=== PATIENT | male | born 1945 | race Caucasian/White ===

== ENCOUNTER 2022-01-11 00:15 | Inpatient (IN) | payer MEDICARE, SELFPAY ==
[2022-01-11] VITALS (23 sets, daily range): BP systolic 105–136; BP diastolic 55–98; PULSE 70–90; RESP 14–20; TEMP 36.5–36.9; O2SAT 90–99; BMI 29.5
--- NOTE | 2022-01-11 | IR_ITS ---
APPROVED REPORT Patient Location: Inpatient Medical Scientist: JORGE Rowell RT (R) PROCEDURES Left heart catheterization Left ventriculogram Selective coronary angiogram INDICATION Acute non-ST elevation myocardial infarction, Coronary artery disease Informed consent was obtained prior to the procedure. COMPLICATIONS None Estimated Blood Loss: Less than 10 ML TECHNIQUE One percent lidocaine used to anesthetize the right anterior aspect of the wrist. The right radial artery was accessed via the Seldinger technique. A 6 [place] sheath was placed in the right radial artery. 2.5 mg of verapamil, 800 mcg of nitroglycerin, 1mg Lidocaine and 5000 U Heparin were given through the arterial sheath. The papa catheter and 6 [place] JL 3 guide catheter were also used to perform left heart catheterization, left ventriculogram and selective coronary angiogram. At the end of the procedure the sheath was removed good hemostasis was achieved using Traclet band, patient was transferred to the postop holding area in stable condition. ANGIOGRAPHIC RESULTS The left main artery Is a distal calcified concentric 80% stenosis The left anterior descending artery Has proximal 20 and 30% stenoses with mid vessel 50% stenosis and a distal concentric 90% stenosis followed by an additional 90% stenosis of the LAD wraps the apex The circumflex artery Nondominant has an ostial 90% stenosis with 50 to 60% concentric stenosis in the first obtuse marginal artery and tandem 80 to 90% stenoses in the second obtuse marginal artery The right coronary artery Is a dominant vessel has proximal 30% stenosis mid vessel 30 to 40% stenosis. A large posterior lateral branch has an ostial proximal 60 to 70% stenosis mid vessel 40% tandem stenoses. A posterior descending artery has an ostial 80% stenosis The SANTIZO ventriculogram reveals Normal 60 to 65% The left ventricular end-diastolic pressure 15 mmHg IMPRESSION Severe three-vessel coronary disease as described above Normal ejection fraction Mildly elevated LVEDP PLAN 1. Patient will be transferred to [facility] for surgical revascularization 2. LDL goal less than 55 to be achieved with high intensity statin 3. Start daily aspirin Electronically signed by : Curtis Quiñones MD 01/11/2022 13:31:14
--- NOTE | 2022-01-11 00:24 | PC.NURSE ---
patient arrived to floor @ 00:06
[2022-01-11 05:47] LABS: Coronavirus 19, PCR Not Detected (NotDetected); Influenza A, PCR Not Detected (NotDetected); Influenza B, PCR Not Detected (NotDetected)
[2022-01-11 06:04] LABS: Basophils # 0.2 K/mm3 (0-0.2); Basophils % 1.1 % (0.1-2.0); Eosinophils # 0.3 K/mm3 (0.0-0.4); Eosinophils % 1.6 % (0.1-12.0); Hemoglobin 13.5 g/dL (14.1-18.0); Lymphocytes # 13.2 K/mm3 (0.7-4.5); Lymphocytes % 82.9 % (10-50); Mean Corpuscular HGB Conc 33.8 g/dL (31.8-35.4); Mean Corpuscular Volume 100.4 fl (80-94); Mean Platelet Volume 8.4 fl (7.4-10.4); Monocytes # 0.1 K/mm3 (0.1-1.0); Monocytes % 0.5 % (1.7-9.3); Neutrophils # 2.2 K/mm3 (1.8-7.8); Platelet Count 183 K/mm3 (142-424); Red Blood Count 3.98 M/mm3 (4.60-6.20); Red Cell Distribution Width 14.7 % (11.5-17.5); White Blood Count 15.9 K/mm3 (4.8-10.8)
[2022-01-11 06:13] LABS: MANUAL DIFFERENTIAL MANUAL DIFFERENTIAL (MANUAL DIFF)
[2022-01-11 06:33] LABS: Chloride 103 mmol/L (98-107); Potassium 3.4 mmoL/L (3.5-5.1); Sodium 139 mmol/L (136-145)
[2022-01-11 06:35] LABS: Blood Urea Nitrogen 13 mg/dl (9-20); Creatinine Clearance Estimated 80 mL/min (50-200); Estimated Glomerular Filt Rate 110 ml/min (>60); GFR (African American) 133 ML/MIN (>60)
[2022-01-11 06:36] LABS: Anion Gap 11.4 mEq/L (5-15); Calcium 8.5 mg/dl (8.4-10.2); Carbon Dioxide 28 mmol/L (22.0-30.0); Cholesterol 115 mg/dl (140-200); Glucose 149 mg/dl (74-100); Triglycerides 147 mg/dl (30-150); VLDL Cholesterol 29 mg/dL (0-40)
[2022-01-11 06:37] LABS: Chol/HDL Ratio 3.7 (1-3.5); HDL Cholesterol 31 mg/dl (40-60); Magnesium 1.4 mg/dl (1.6-2.3)
[2022-01-11 06:47] LABS: Direct LDL Cholesterol 57.96 mg/dL (100-129)
--- NOTE | 2022-01-11 07:00 | CA_ITS ---
APPROVED REPORT EXAM: Comprehensive 2D, Doppler, and color-flow Echocardiogram [employer]en [employer]: Sugey Jimenez CRT Ht: 5 ft 9 in Wt: 199lbs BSA: 2.06 BP: 145/86 mmHg Indications: Chest Pain, Diabetes, Hypertension/HDD 2D Dimensions LVOT 1.95 cm (M/F) 1.5-2.5 LA Volume 50.70 mL LA Volume Index 24.60 mL/m2 (M/F) 16-34 M-Mode Dimensions RVDd 3.22 cm (0.9-2.6) LA Diam 4.39 cm (1.9-4.0) LVDd 4.60 cm (3.5-5.7) Ao Diam 3.57 cm (2.0-3.7) LVDs 3.36 cm (3.5-5.7) IVSd 1.75 cm (0.6-1.1) PWd 0.64 cm (0.6-1.1) EF (Teich) 52.60% FS 27.00% EDV (Teich) 97.30 mL TAPSE 1.62 (<1.7) ESV (Teich) 46.10 mL LV Diastology E Decel Time 157.00 (160-240 msec) E/A Ratio 1.63 MED E' 5.70 (< 7 cm/sec) MED A' 5.40 cm/s E'/MED E' Ratio 17.56 (>14) LAT E' 8.80 (<10 cm/sec) LAT A' 6.00 cm/s E/LAT E' Ratio 11.38 (>14) Aortic Valve AO Peak GR. 7.10 mmHg Mitral Valve MV E Max Manuel. 100.00 (40-130 cm/s) MV A Velocity 61.00 (40-130 cm/s) E/A Ratio 1.63 MV Decel. Time 157.00 (160-240 ms) MV PHT 46.00 ms Pulmonary Valve PV Peak Velocity 163.00 (50-150 cm/s) Tricuspid Valve TR P. Velocity 283.00 cm/s RAP Estimate 10.00 mmHg RVSP 42.10 mmHg Left Ventricle Left atrium is mildly enlarged, left ventricle is normal size, mild concentric left ventricular hypertrophy, estimated ejection fraction 50%, inferior basal wall appears to be moderately hypokinetic. Diastolic parameters are inconclusive. Right Ventricle Right atrium and right ventricular mildly enlarged with normal contractility. Aortic Valve Aortic valve is minimally thickened and fibrosed, there is no aortic stenosis or aortic insufficiency. Mitral Valve Mitral valve leaflets are minimally thickened, there is mild to moderate mitral regurgitation. Tricuspid Valve Tricuspid valve is grossly normal, there is mild tricuspid regurgitation, calculated right ventricular systolic pressure is 42 mmHg. Pulmonic Valve Pulmonic valve is poorly visualized. Great Vessels Aortic root is normal size. Inferior vena cava is poorly visualized. Pericardium No significant pericardial effusion noted. Conclusion 1. Mildly enlarged left atrium, normal left ventricular size, visually estimated ejection fraction 50% with segmental wall motion abnormality described above, diastolic parameters are inconclusive. 2. Mild to moderate mitral and mild tricuspid regurgitation, calculated right ventricular systolic pressure is 42 mmHg. 3. No significant pericardial effusion noted. 4. Inferior vena cava is poorly visualized. Electronically signed by : Laz Angulo MD 01/11/2022 19:43:49
[2022-01-11 07:20] LABS: Eosinophils % 1 % (0-3); Lymphocytes % 80 % (10-50); Macrocytosis 1+; Neutrophils % 16 % (42-76); Total Cells Counted 100
[2022-01-11 07:21] LABS: Platelet Estimate Normal
--- NOTE | 2022-01-11 07:25 | P.CONPHA_ITS ---
[facility] Pharmacy VTE Monitoring - Patient Demographics Admission date: 01/11/22 Report Date: 01/11/22 Time: 07:25 Allergies/Adverse Reactions: Patient Allergies lisinopril Adverse Reaction (Mild, Verified 01/11/22 00:45) Cough Height: 1.75 m Weight: 90.492 kg - VTE Risk Labs: VTE Related Lab Results Hgb 13.5 g/dL (14.1-18.0) L 01/11/22 05:26 Hct 40.0 % (42.0-52.0) L 01/11/22 05:26 Plt Count 183 K/mm3 (142-424) 01/11/22 05:26 BUN 13 mg/dl (9-20) 01/11/22 05:26 Creatinine 0.70 mg/dl (0.66-1.25) 01/11/22 05:26 Estimated Creat Clear 80 mL/min (50-200) 01/11/22 05:26 Was VTE Risk Assessment Performed: Yes VTE Score: 2 VTE Risk Level: Very Low Risk - Prophylaxis VTE Prophylaxis Ordered?: Yes Types of VTE Prophylaxis: TEDS Knee High Location of Applied Device: Bilateral Lower Extremeties
--- NOTE | 2022-01-11 07:30 | HMH.PHAINT ---
MEDICATION RECONCILIATION COMPLETED ON PATIENT USING EXTERNAL FILL HISTORY FROM PHARMACY. -[place], [place]
--- NOTE | 2022-01-11 07:41 | HMH.CNCARD ---
History of Present Illness Consult date: 01/11/22 Requesting physician: Luis Hill Consult reason: chest pain Chief complaint: SOA, elevated troponin Additional Medical History:: 1. Hypertension 2. Hyperlipidemia 3. History of diabetes treated for many years with recent hemoglobin A1c between 6 and 7 4. Prior laminectomy for neuropathic leg pain that was unsuccessful in treating patients pain 5. History of prostate cancer status post prostatectomy 6. Chronic lymphocytic leukemia, monitored by Dr. Grady 7. Hypothyroidism, on replacement therapy. History of present illness: 76-year-old white male presented to [facility] last evening for acute onset of shortness of breath approximately 30 minutes prior to arrival. Patient has noticed increasing exertional shortness of breath over the last several months with fatigue and increased lethargy. He denies any chest pain, pressure or tightness. Work-up at [facility] revealed elevated troponins (459 initially then 471 on repeat with reference of significant for greater than 75). Patient was transferred to [facility] for cardiac evaluation. Patient denies any prior heart attack or cardiac catheterization. No complaints of chest pain or shortness of breath overnight. EKGs from [facility] show sinus rhythm with no acute ST segment changes. Mildly elevated D-dimer noted and a CT of the chest PE protocol was obtained showing no evidence pulmonary embolism. Patient does have interstitial pulmonary edema with small bilateral pleural effusions. Covid test was negative [facility] History Medical History: Reports:: Cancer (Prostate 2020), Diabetes Mellitus Type 2, Hyperlipidemia, Hypertension Denies:: MRSA *Have you ever received a pneumonia vaccine?: Yes *Have you received a flu vaccine this season?: Yes Other Medical History: Reports: Arthritis Laterality Cases: Right: Arthroscopy Shoulder, Carpal Tunnel Release Other Surgeries: Yes: Cholecystectomy, Hernia Repair Amputation: No Fractures: No - *Social History Smoking Status: Never smoker Alcohol Intake: never *Occupational Status:: retired Household Members: spouse *Travel in the last 8 weeks: None Family Hx:: Unable to obtain Meds Home Medications Medication Instructions Recorded Confirmed Type Amlodipine Besylate 5 mg PO DAILY 01/11/22 01/11/22 History Cholestyramine/Aspartame 4 gm PO BID 01/11/22 01/11/22 History [Prevalite 4gm Powder Pack] Diclofenac Potassium [Diclofenac 50 mg PO BID 01/11/22 01/11/22 History 50mg Tab] Insulin Glargine/Lixisenatide 44 units SQ DAILY 01/11/22 01/11/22 History [Soliqua 100 Unit-33 Mcg/ml Pen] Levothyroxine Sodium 75 mcg PO DAILY 01/11/22 01/11/22 History [Levothyroxine 75mcg (0.075mg) Tab] Losartan Potassium 100 mg PO DAILY 01/11/22 01/11/22 History Metformin HCl [Metformin HCl ER] 1,000 mg PO BID 01/11/22 01/11/22 History Oxybutynin Chloride 5 mg PO DAILY 01/11/22 01/11/22 History Pramipexole Di-HCl [Pramipexole 0.5 mg PO HS 01/11/22 01/11/22 History Dihydrochloride] Pregabalin 200 mg PO BID 01/11/22 01/11/22 History Allergies Allergy/AdvReac Type Severity Reaction Status Date / Time lisinopril AdvReac Mild Cough Verified 01/11/22 00:45 Exam Vital signs and Labs for Last 24 Hours: Temp Pulse Resp BP Pulse Ox 98.4 F 79 16 136/71 96 01/11/22 04:00 01/11/22 04:00 01/11/22 04:00 01/11/22 04:00 01/11/22 04:00 Laboratory Results - last 24 hr 01/11/22 05:26: WBC 15.9 H, RBC 3.98 L, Hgb 13.5 L, Hct 40.0 L, MCV 100.4 H, MCH 34.0 H, MCHC 33.8, RDW 14.7, Plt Count 183, MPV 8.4, Neut % (Auto) 14.0 L, Lymph % (Auto) 82.9 H, [place] % (Auto) 0.5 L, Eos % (Auto) 1.6, Baso % (Auto) 1.1, Neut # (Auto) 2.2, Lymph # (Auto) 13.2 H, [place] # (Auto) 0.1, Eos # (Auto) 0.3, Baso # (Auto) 0.2, Total Counted 100, Neutrophils % (Manual) 16 L, Lymphocytes % (Manual) 80 H, Atypical Lymphs % 2.0, Eosinophils % (Manual) 1, Basophils % (M
--- NOTE | 2022-01-11 14:50 | HMH.HPDC ---
General - General Admission date:: 01/11/22 Discharge date: 01/11/22 *Admission Date: 01/11/22 *Chief complaint: Shortness of breath *History of present illness: 76-year-old white male presented to [facility] last evening for acute onset of shortness of breath approximately 30 minutes prior to arrival. Patient has noticed increasing exertional shortness of breath over the last several months with fatigue and increased lethargy. He denies any chest pain, pressure or tightness. Work-up at [facility] revealed elevated troponins (459 initially then 471 on repeat with reference of significant for greater than 75). Patient was transferred to [facility] for cardiac evaluation. Patient denies any prior heart attack or cardiac catheterization. No complaints of chest pain or shortness of breath overnight. EKGs from [facility] show sinus rhythm with no acute ST segment changes. Mildly elevated D-dimer noted and a CT of the chest PE protocol was obtained showing no evidence pulmonary embolism. Patient does have interstitial pulmonary edema with small bilateral pleural effusions. Covid test was negative (Per Jia ARMANDO) [facility] History I have reviewed the patient's past medical history: Yes Medical History: Reports:: Cancer (Prostate 2020), Diabetes Mellitus Type 2, Hyperlipidemia, Hypertension Denies:: MRSA *Have you ever received a pneumonia vaccine?: Yes *Have you received a flu vaccine this season?: Yes Other Medical History: Reports: Arthritis Laterality Cases: Right: Arthroscopy Shoulder, Carpal Tunnel Release Other Surgeries: Yes: Cholecystectomy, Hernia Repair Amputation: No Fractures: No - *Social History Smoking Status: Never smoker Alcohol Intake: never *Occupational Status:: retired Household Members: spouse *Travel in the last 8 weeks: None Family Hx:: Unable to obtain Review of Systems - Review of Systems Review of systems:: pertinent systems reviewed and negative unless documented below - Constitutional Reports fatigue, Denies body ache(s), Denies fever(s) - Eyes Denies blurry vision, Denies double vision - ENT Denies abnormal hearing, Denies hearing loss - *Cardiovascular Reports shortness of breath, Reports shortness of breath with activity, Denies chest pain, Denies chest pain with activity - *Respiratory Reports shortness of breath, Reports shortness of breath with activity, Denies chest congestion - *Gastrointestinal Denies abdominal pain, Denies change in bowel habits - *Musculoskeletal Denies joint pain, Denies muscle weakness - Integumentary/Breasts Denies dry skin, Denies lesions - *Neurologic Denies seizure-like activity, Denies dizziness - Psychiatric Denies lack of enjoyment, Denies confusion, Denies depression - Endocrine Denies cold intolerance, Denies increased hunger - Hematologic/Lymphatic Denies easy bleeding, Denies easy bruising - Allergic/Immunologic Denies GI upset with certain foods, Denies tongue swelling Exam Vital signs and Labs for Last 24 Hours: Temp Pulse Resp BP Pulse Ox 98 F 81 20 117/62 95 01/11/22 13:26 01/11/22 13:53 01/11/22 13:53 01/11/22 13:53 01/11/22 13:53 Laboratory Results - last 24 hr 01/11/22 05:26: WBC 15.9 H, RBC 3.98 L, Hgb 13.5 L, Hct 40.0 L, MCV 100.4 H, MCH 34.0 H, MCHC 33.8, RDW 14.7, Plt Count 183, MPV 8.4, Neut % (Auto) 14.0 L, Lymph % (Auto) 82.9 H, [place] % (Auto) 0.5 L, Eos % (Auto) 1.6, Baso % (Auto) 1.1, Neut # (Auto) 2.2, Lymph # (Auto) 13.2 H, [place] # (Auto) 0.1, Eos # (Auto) 0.3, Baso # (Auto) 0.2, Total Counted 100, Neutrophils % (Manual) 16 L, Lymphocytes % (Manual) 80 H, Atypical Lymphs % 2.0, Eosinophils % (Manual) 1, Basophils % (Manual) 1.0, Platelet Estimate Normal, Macrocytosis 1+ 01/11/22 05:26: Sodium 139, Potassium 3.4 L, Chloride 103, Carbon Dioxide 28, Anion Gap 11.4, BUN 13, Creatinine 0.70, Estimated Creat Clear 80, Estimated GFR 110, Est GFR ( Amer) 133,
[2022-01-11 16:51] LABS: POC Glucose,Bedside 238 (70-110)
[2022-01-11 20:57] LABS: POC Glucose,Bedside 208 (70-110)
[2022-01-12] VITALS (7 sets, daily range): BP systolic 110–148; BP diastolic 56–77; PULSE 70–100; RESP 13–18; TEMP 36.5–36.9; O2SAT 90–97; BMI 28.5; BMI 28.4
--- NOTE | 2022-01-12 04:51 | PC.NURSE ---
pt has rested well this shift, right radial cath site, with dressing in place, C/D/I, HR has been 80-85, systolic BP 113-135, has remained on room air with O2 sats 90-98%, ambulating in room with SB assist
[2022-01-12 05:51] LABS: Basophils # 0.1 K/mm3 (0-0.2); Eosinophils # 0.3 K/mm3 (0.0-0.4); Eosinophils % 1.8 % (0.1-12.0); Hematocrit 39.2 % (42.0-52.0); Lymphocytes # 11.8 K/mm3 (0.7-4.5); Lymphocytes % 83.9 % (10-50); Mean Corpuscular Hemoglobin 33.8 pg (27.0-31.2); Mean Corpuscular Volume 102.3 fl (80-94); Mean Platelet Volume 8.3 fl (7.4-10.4); Monocytes # 0.1 K/mm3 (0.1-1.0); Monocytes % 0.4 % (1.7-9.3); Neutrophils # 1.8 K/mm3 (1.8-7.8); Platelet Count 179 K/mm3 (142-424); Red Blood Count 3.84 M/mm3 (4.60-6.20); Red Cell Distribution Width 14.6 % (11.5-17.5); White Blood Count 14.1 K/mm3 (4.8-10.8)
[2022-01-12 05:52] LABS: Chloride 103 mmol/L (98-107); Potassium 3.5 mmoL/L (3.5-5.1); Sodium 138 mmol/L (136-145)
[2022-01-12 05:54] LABS: MANUAL DIFFERENTIAL MANUAL DIFFERENTIAL (MANUAL DIFF)
[2022-01-12 05:55] LABS: Anion Gap 9.5 mEq/L (5-15); Blood Urea Nitrogen 14 mg/dl (9-20); Carbon Dioxide 29 mmol/L (22.0-30.0); Creatinine Clearance Estimated 78 mL/min (50-200); Estimated Glomerular Filt Rate 110 ml/min (>60); GFR (African American) 133 ML/MIN (>60)
[2022-01-12 05:56] LABS: Calcium 7.8 mg/dl (8.4-10.2); Glucose 164 mg/dl (74-100)
[2022-01-12 06:51] LABS: POC Glucose,Bedside 166 (70-110)
[2022-01-12 09:00] LABS: Differential Comment KNP; Eosinophils % 1 % (0-3); Lymphocytes % 83 % (10-50); Macrocytosis 1+; Monocytes % 1 % (2-9); Neutrophils % 13 % (42-76); Platelet Estimate Normal; Total Cells Counted 100
--- NOTE | 2022-01-12 10:06 | P.PN_ITS ---
Internal Medicine - PN: Subj *Date: 01/12/22 *Time: 08:20 Interval history: pt states doing well Exam Vital signs and Labs for Last 24 Hours: Temp Pulse Resp BP Pulse Ox 97.7 F 83 16 139/77 95 01/12/22 08:00 01/12/22 08:00 01/12/22 08:00 01/12/22 08:00 01/12/22 08:00 Laboratory Results - last 24 hr 01/11/22 16:25: POC Glucose 238 H 01/11/22 20:15: POC Glucose 208 H 01/12/22 05:15: WBC 14.1 H, RBC 3.84 L, Hgb 13.0 L, Hct 39.2 L, MCV 102.3 H, MCH 33.8 H, MCHC 33.0, RDW 14.6, Plt Count 179, MPV 8.3, Neut % (Auto) 13.0 L, Lymph % (Auto) 83.9 H, [place] % (Auto) 0.4 L, Eos % (Auto) 1.8, Baso % (Auto) 1.0, Neut # (Auto) 1.8, Lymph # (Auto) 11.8 H, [place] # (Auto) 0.1, Eos # (Auto) 0.3, Baso # (Auto) 0.1, Total Counted 100, Neutrophils % (Manual) 13 L, Lymphocytes % (Manual) 83 H, Atypical Lymphs % 2.0, Monocytes % (Manual) 1 L, Eosinophils % (Manual) 1, Differential Comment Knp, Platelet Estimate Normal, Macrocytosis 1+ 01/12/22 05:15: Sodium 138, Potassium 3.5, Chloride 103, Carbon Dioxide 29, Anion Gap 9.5, BUN 14, Creatinine 0.70, Estimated Creat Clear 78, Estimated GFR 110, Est GFR ( Amer) 133, Glucose 164 H, Calcium 7.8 L 01/12/22 05:34: POC Glucose 166 H I & O for Last 24 hours: Intake & Output 01/09/22 01/10/22 01/11/22 01/12/22 11:59 11:59 11:59 11:59 Intake Total 1538 / 1538 Balance 1538 / 1538 Weight 199 lb 8 oz 192 lb 9.6 oz - Constitutional no acute distress - *Routine HEENT Exam Head: Present: normocephalic Eye: Present: PERRL ENT: Present: mucous membranes moist - *Routine Neck Exam Present: supple. Absent: lymphadenopathy - *Routine Respiratory Exam Present: CTA bilaterally - *Routine Cardiovascular Exam Present: RRR - *Routine Abdominal Exam Present: soft, normoactive bowel sounds. Absent: tenderness - *Routine Extremities Exam Absent: cyanosis, clubbing, edema - *Routine Skin Exam Present: warm. Absent: rash - *Routine Neurological Exam Present: alert, oriented X3 Assessment and Plan (1) Non-ST elevation CA (NSTEMI) Status: Acute Category: Medical Code(s): I21.4 - Non-ST elevation (NSTEMI) myocardial infarction (2) Hypertension Status: Acute Category: Medical Code(s): I10 - Essential (primary) hypertension (3) Hyperlipidemia associated with type 2 diabetes mellitus Status: Acute Category: Medical Code(s): E11.69 - Type 2 diabetes mellitus with other specified complication; E78.5 - Hyperlipidemia, unspecified (4) Type 2 diabetes mellitus Status: Acute Category: Medical Code(s): E11.9 - Type 2 diabetes mellitus without complications (5) History of chronic lymphocytic leukemia Status: Acute Category: Medical Code(s): Z85.6 - Personal history of leukemia (6) History of prostate cancer Status: Acute Category: Medical Code(s): Z85.46 - Personal history of malignant neoplasm of prostate (7) 3-vessel CAD Status: Acute Category: Medical Code(s): I25.10 - Atherosclerotic heart disease of [place] coronary artery without angina pectoris - Assessment and plan all Dx Assessment and Plan for all problems:: rounded with dr lowry all orders per dr lowry waiting for bed at for transfer for 3 vessel bypass
--- NOTE | 2022-01-12 10:07 | HMH.PNCARD ---
Subjective Date: 01/12/22 Time: 10:07 Principal diagnosis: NSTEMI, three-vessel coronary artery disease Interval history: 76-year-old white male admitted yesterday for unstable angina/NSTEMI for which he underwent cardiac catheterization revealing three-vessel coronary artery disease with recommendation for coronary artery bypass grafting. Patient has had no symptoms overnight. We are awaiting transfer to for CABG. Exam Vital signs and Labs for Last 24 Hours: Temp Pulse Resp BP Pulse Ox 97.7 F 83 16 139/77 95 01/12/22 08:00 01/12/22 08:00 01/12/22 08:00 01/12/22 08:00 01/12/22 08:00 Laboratory Results - last 24 hr 01/11/22 16:25: POC Glucose 238 H 01/11/22 20:15: POC Glucose 208 H 01/12/22 05:15: WBC 14.1 H, RBC 3.84 L, Hgb 13.0 L, Hct 39.2 L, MCV 102.3 H, MCH 33.8 H, MCHC 33.0, RDW 14.6, Plt Count 179, MPV 8.3, Neut % (Auto) 13.0 L, Lymph % (Auto) 83.9 H, [place] % (Auto) 0.4 L, Eos % (Auto) 1.8, Baso % (Auto) 1.0, Neut # (Auto) 1.8, Lymph # (Auto) 11.8 H, [place] # (Auto) 0.1, Eos # (Auto) 0.3, Baso # (Auto) 0.1, Total Counted 100, Neutrophils % (Manual) 13 L, Lymphocytes % (Manual) 83 H, Atypical Lymphs % 2.0, Monocytes % (Manual) 1 L, Eosinophils % (Manual) 1, Differential Comment Knp, Platelet Estimate Normal, Macrocytosis 1+ 01/12/22 05:15: Sodium 138, Potassium 3.5, Chloride 103, Carbon Dioxide 29, Anion Gap 9.5, BUN 14, Creatinine 0.70, Estimated Creat Clear 78, Estimated GFR 110, Est GFR ( Amer) 133, Glucose 164 H, Calcium 7.8 L 01/12/22 05:34: POC Glucose 166 H I & O for Last 24 hours: Intake & Output 01/09/22 01/10/22 01/11/22 04/13/22 11:59 11:59 11:59 11:59 Intake Total 1538 / 1538 Balance 1538 / 1538 Weight 199 lb 8 oz 192 lb 9.6 oz - Constitutional no acute distress - *Routine Respiratory Exam Present: CTA bilaterally - *Routine Cardiovascular Exam Present: RRR - *Routine Neurological Exam Present: alert, oriented X3 Progress Note: A&P (1) Non-ST elevation [place] (NSTEMI) Status: Acute (2) Hypertension Status: Acute (3) Hyperlipidemia associated with type 2 diabetes mellitus Status: Acute (4) Type 2 diabetes mellitus Status: Acute (5) History of chronic lymphocytic leukemia Status: Acute (6) History of prostate cancer Status: Acute (7) 3-vessel CAD Status: Acute Assessment and Plan for All Diagnoses:: Waiting for transfer to for CABG.
[2022-01-12 10:53] LABS: POC Glucose,Bedside 189 (70-110)
--- NOTE | 2022-01-12 23:44 | PC.NURSE ---
called report to Nilam at , will await EMS to transport pt to [facility]
[2022-01-13] VITALS: BP 144/70; PULSE 80; PULSE 83; RESP 18; TEMP 36.5; O2SAT 97
--- NOTE | 2022-01-13 01:06 | PC.NURSE ---
Patient discharged with [facility] at this time.
== END 2022-01-13 01:06 | disposition short-term general hospital (02) | DRG 281 ==
PROVIDERS: Internal Medicine; Nurse Practitioner Family; Admitting Provider Emergency Medicine; PCP Nurse Practitioner Family; Visit Provider Emergency Medicine
PROC: 4A023N7 Measurement of Cardiac Sampling and Pressure, Left Heart, Percutaneous Approach (ICD-10-PCS; principal; 2022-01-11 09:00)
DX: I21.4 Non-ST elevation (NSTEMI) myocardial infarction (principal); C91.10 Chronic lymphocytic leukemia of B-cell type not having achieved remission; I25.10 Atherosclerotic heart disease of native coronary artery without angina pectoris; E11.69 Type 2 diabetes mellitus with other specified complication; E78.5 Hyperlipidemia, unspecified; I10 Essential (primary) hypertension; Z85.46 Personal history of malignant neoplasm of prostate; M19.90 Unspecified osteoarthritis, unspecified site
CPT/HCPCS: 36415; 80048; 80061; 82962; 83735; 85007; 85025; 93306; 93458; 99152; C1725; C1760; C1769; C9803; J1644; J3475; Q9967; U0003; U0005

== ENCOUNTER → 2022-07-18 07:20 | Outpatient (CLI) | payer MEDICARE, SELFPAY | PROVIDERS: PCP Nurse Practitioner Family; Visit Provider Physician Assistant | DX: E11.69 Type 2 diabetes mellitus with other specified complication (principal); E78.5 Hyperlipidemia, unspecified; I10 Essential (primary) hypertension; I25.10 Atherosclerotic heart disease of native coronary artery without angina pectoris; I34.0 Nonrheumatic mitral (valve) insufficiency; Z79.4 Long term (current) use of insulin | CPT/HCPCS: 93306 ==

== ENCOUNTER → 2023-01-18 11:36 | Outpatient (CLI) | payer MEDICARE, SELFPAY ==
--- NOTE | 2023-01-18 11:47 | XR_ITS ---
FINAL REPORT CLINICAL HISTORY: on amiodarone therapy FINDINGS: TWO-VIEW CHEST The heart size is normal. The patient is status post median sternotomy. The lungs are clear. There is no pneumothorax. There are moderate degenerative changes of the thoracic spine. IMPRESSION: No acute cardiopulmonary process. Reviewed, Interpreted and Dictated by Kingsley Galarza III, MD Transcribed by Katie Hancock Authenticated and . [facility]
[2023-01-18 12:43] LABS: Alanine Aminotransferase 41 U/L (12-78); Albumin Level 3.8 g/dl (3.5-5.0); Alkaline Phosphatase 57 U/L (38-126); Aspartate Amino Transferase 49 U/L (17-59); Bilirubin,Indirect 0.7 mg/dL (0.0-0.9); Bilirubin,Total 0.7 mg/dl (0.2-1.3); Bilirubin,Unconjugated 0.8 mg/dL (0.0-1.1); Total Protein,Serum 6.5 g/dl (6.3-8.2); Triglycerides 96 mg/dl (30-150); VLDL Cholesterol 19 mg/dL (0-40)
[2023-01-18 12:44] LABS: Cholesterol 67 mg/dl (140-200); HDL Cholesterol 34 mg/dl (40-60)
[2023-01-18 12:57] LABS: Direct LDL Cholesterol < 30.00 mg/dL (100-129)
[2023-01-18 12:59] LABS: Triiodothryronine (T3) Uptake 34 % (23.5-40.5)
[2023-01-18 13:00] LABS: Free Thyroxine Index 3.3 ug/dL (5.93-13.13); T4 (Thyroxine) 9.8 ug/dl (5.53-11.0)
== END ==
PROVIDERS: PCP Nurse Practitioner Family; Visit Provider Nurse Practitioner Family
DX: C91.10 Chronic lymphocytic leukemia of B-cell type not having achieved remission (principal); E11.69 Type 2 diabetes mellitus with other specified complication; E78.5 Hyperlipidemia, unspecified; I11.9 Hypertensive heart disease without heart failure; I25.10 Atherosclerotic heart disease of native coronary artery without angina pectoris; I27.21 Secondary pulmonary arterial hypertension; I34.0 Nonrheumatic mitral (valve) insufficiency; Z79.899 Other long term (current) drug therapy; Z95.1 Presence of aortocoronary bypass graft; Z79.4 Long term (current) use of insulin
CPT/HCPCS: 36415; 71046; 80061; 80076; 84436; 84443; 84479

== ENCOUNTER → 2023-04-07 12:32 | Outpatient (CLI) | payer MEDICARE, SELFPAY | PROVIDERS: PCP Nurse Practitioner Family; Visit Provider Physician Assistant | DX: C91.10 Chronic lymphocytic leukemia of B-cell type not having achieved remission (principal); E11.69 Type 2 diabetes mellitus with other specified complication; E78.5 Hyperlipidemia, unspecified; I10 Essential (primary) hypertension; I25.10 Atherosclerotic heart disease of native coronary artery without angina pectoris; I27.21 Secondary pulmonary arterial hypertension; I34.0 Nonrheumatic mitral (valve) insufficiency; R00.1 Bradycardia, unspecified; R60.0 Localized edema; Z79.899 Other long term (current) drug therapy; Z95.1 Presence of aortocoronary bypass graft; Z79.4 Long term (current) use of insulin | CPT/HCPCS: 93306 ==

== ENCOUNTER → 2023-04-08 10:33 | Outpatient (CLI) | payer MEDICARE, SELFPAY | PROVIDERS: PCP Nurse Practitioner Family; Visit Provider Physician Assistant | DX: R00.1 Bradycardia, unspecified (principal) | CPT/HCPCS: 93225 ==

== ENCOUNTER → 2023-04-11 09:22 | Outpatient (CLI) | payer MEDICARE, SELFPAY | PROVIDERS: PCP Nurse Practitioner Family; Visit Provider Nurse Practitioner Family | DX: C91.10 Chronic lymphocytic leukemia of B-cell type not having achieved remission (principal); E11.69 Type 2 diabetes mellitus with other specified complication; E78.5 Hyperlipidemia, unspecified; I10 Essential (primary) hypertension; I27.21 Secondary pulmonary arterial hypertension; I34.0 Nonrheumatic mitral (valve) insufficiency; R00.1 Bradycardia, unspecified; R60.0 Localized edema; Z79.899 Other long term (current) drug therapy; Z95.1 Presence of aortocoronary bypass graft; Z79.84 Long term (current) use of oral hypoglycemic drugs | CPT/HCPCS: 93270 ==